=== PATIENT | female | born 1970 | race Hispanic/Latino ===

== ENCOUNTER 2021-05-18 08:57 | Day surgery (SDC) | payer BC ==
[~2021-05-18] VITALS: Ht 170.2 cm; Wt 112.5 kg
[~2021-05-18 08:57] MED LIST: 0.9%NACL 1000ML 1,000 ML IV ONE; DULA3PEN SQ; FLUO60TA PO; METF750T46 PO
[2021-05-18 10:05] VITALS: BP 145/64
[2021-05-18] MEDS ORDERED: PROPOFOL 10 MG/ML 20ML VIAL IV ONE ×2 (12:58→13:12)
[2021-05-18 13:40] VITALS: BP 132/63
[2021-05-18 13:45] VITALS: BP 135/64
[2021-05-18 13:50] VITALS: BP 149/66
[2021-05-18 13:55] VITALS: BP 137/68
[2021-05-18 14:00] VITALS: BP 147/65
== END 2021-05-18 14:10 | disposition home or self-care (01) ==
LOC: ENDO 08:57 → DAH 08:57 → ENDO 14:10
PROVIDERS: ATTEND Internal Medicine Gastroenterology
DX: K22.8 Other specified diseases of esophagus (principal); Z20.822 Contact with and (suspected) exposure to COVID-19; K21.9 Gastro-esophageal reflux disease without esophagitis; E66.9 Obesity, unspecified; F41.9 Anxiety disorder, unspecified; E11.9 Type 2 diabetes mellitus without complications; F32.9 Major depressive disorder, single episode, unspecified; E03.9 Hypothyroidism, unspecified; Z80.0 Family history of malignant neoplasm of digestive organs; Z79.84 Long term (current) use of oral hypoglycemic drugs; Z79.01 Long term (current) use of anticoagulants; Z79.899 Other long term (current) drug therapy; Z98.890 Other specified postprocedural states; Z86.010 Personal history of colon polyps; Z68.39 Body mass index [BMI] 39.0-39.9, adult
CPT/HCPCS: 43202; 43231; 82948 ×2; 87635; A4215 ×2; A4221; A4222; A4223; A4606; A4620; A4657; A4663; C9803; J2704 ×2; J7030